=== PATIENT | male | born 1930 | race Caucasian/White ===

== ENCOUNTER 2016-08-30 10:10 | Day surgery (SDC) | payer OTHER ==
--- NOTE | ~2016-08-30 | EGD ---
EGD REPORT [facility] [address] [place] [address] NAME: RILEY BAKER JR : 28 STATUS : REG [facility]#: [id number] AGE: 85 ADM/REG DATE : 08/30/16 MR#: [id number] REPORT SERV DATE: 08/30/16 DICTATED BY: SHEN OLSEN DATE: 08/30/16 REPORT STATUS : Draft TRANSCRIBED BY: [employer] DATE: 08/30/16 [facility] Patient Name: Riley Baker Jr Date of : 1930 Attending MD: SHEN OLSEN MD Procedure Date No Time: 08/30/2016 Procedure: Upper GI endoscopy Indications: Iron deficiency anemia Referring MD: AGATHA LOVE Medicines: as per anesthesia Complications: No immediate complications. Procedure: Pre-Anesthesia Assessment: - ASA Grade Assessment: III - A patient with severe systemic disease. After obtaining informed consent, the endoscope was passed under direct vision. Throughout the procedure, the patient's blood pressure, pulse, and oxygen saturations were monitored continuously. The GIF H190 [id number] was introduced through the mouth, and advanced to the third part of duodenum. The upper GI endoscopy was accomplished without difficulty. The patient tolerated the procedure. Findings: The examined esophagus was normal. The entire examined stomach was normal. The cardia and gastric fundus were normal on retroflexion. The examined duodenum was normal. Biopsies were taken with a cold forceps for histology. Impression: - Normal esophagus. - Normal stomach. - Normal examined duodenum. Biopsied. Recommendation: - Await pathology results. Procedure Code(s): --- Professional --- 38834, Esophagogastroduodenoscopy, flexible, transoral; with biopsy, single or multiple Diagnosis Code(s): --- Professional --- D50.9, Iron deficiency anemia, unspecified CPT copyright 2013 [employer] [place] [employer]. All rights reserved. EGD REPORT [facility] [address] [place] [address] NAME: RILEY BAKER JR : 28 STATUS : [place] [facility] PAT#: [id number] AGE: 85 ADM/REG DATE : 08/30/16 MR#: [id number] REPORT SERV DATE: 08/30/16 DICTATED BY: SHEN OLSEN. DATE: 08/30/16 REPORT STATUS : Draft TRANSCRIBED BY: [employer] DATE: 08/30/16 The codes documented in this report are preliminary and upon lining folder review may be revised to meet current compliance requirements. SHEN OLSEN MD 08/30/2016 12:46 PM This report has been signed electronically. Number of Addenda: 0 Note Initiated On: 08/30/2016 12:30 PM Scope Withdrawal Time 0 hours 0 minutes 0 seconds [address] [place] [address]
--- NOTE | ~2016-08-30 | EGD ---
EGD REPORT [facility] [address] [place] [address] NAME: RILEY BAKER JR : 28 STATUS : REG [facility]#: [id number] AGE: 85 ADM/REG DATE : 08/30/16 MR#: [id number] REPORT SERV DATE: 08/30/16 DICTATED BY: SHEN OLSEN DATE: 08/30/16 REPORT STATUS : Draft TRANSCRIBED BY: [employer] DATE: 08/30/16 [facility] Patient Name: Riley Baker Jr Date of : 1930 Attending MD: SHEN OLSEN MD Procedure Date No Time: 08/30/2016 Procedure: Colonoscopy Indications: Iron deficiency anemia Referring MD: AGATHA LOVE Medicines: as per anesthesia Complications: No immediate complications. Procedure: Pre-Anesthesia Assessment: - ASA Grade Assessment: III - A patient with severe systemic disease. After I obtained informed consent, the scope was passed under direct vision. Throughout the procedure, the patient's blood pressure, pulse, and oxygen saturations were monitored continuously. The PCF H190L [id number] was introduced through the anus and advanced to the sigmoid colon. The colonoscopy was performed with moderate difficulty due to inadequate bowel prep. The patient tolerated the procedure. The quality of the bowel preparation was poor. Findings: The perianal and digital rectal examinations were normal. A few small and large-mouthed diverticula were found in the sigmoid colon. Internal hemorrhoids were found during endoscopy and were mild. poor prep exam stopped Impression: - Preparation of the colon was poor. - Diverticulosis in the sigmoid colon. - Internal hemorrhoids. Recommendation: - Repeat colonoscopy because the bowel preparation was suboptimal. Procedure Code(s): --- Professional --- 41622, 52, Colonoscopy, flexible, proximal to splenic flexure; diagnostic, with or without collection of specimen(s) by brushing or washing, with or without colon decompression (separate procedure) Diagnosis Code(s): --- Professional --- EGD REPORT [place] [address] [place]. [address] NAME: RILEY BAKER JR : [birth year] STATUS : REG [facility] PAT#: [id number] AGE: 85 ADM/REG DATE : 08/30/16 MR#: [id number] REPORT SERV DATE: 08/30/16 DICTATED BY: SHEN OLSEN DATE: 08/30/16 REPORT STATUS : Draft TRANSCRIBED BY: [employer] DATE: 08/30/16 K64.8, Other hemorrhoids K57.30, Diverticulosis of large intestine without perforation or abscess without bleeding D50.9, Iron deficiency anemia, unspecified CPT copyright 2013 [employer]. All rights reserved. The codes documented in this report are preliminary and upon boat mechanic review may be revised to meet current compliance requirements. SHEN OLSEN MD 08/30/2016 1:01 PM This report has been signed electronically. Number of Addenda: 0 Note Initiated On: 08/30/2016 12:29 PM Scope Withdrawal Time 0 hours 0 minutes 0 seconds [address] [place] [address]
[~2016-08-30 10:10] MED LIST: ACCUNEB INH; ASAB PO; ATEN25 PO; COMBIVENT INH; FERROUS SULF325 M1 PO; FLOMAX4 PO; L20 PO; LEVOTHYROXIN125 MCG PO; LOP50 PO; LORTAB 5 PO; MCZ125 PO; NORV10 PO; PRIN20 PO; PROAIR HFA INH; SINGULAIR1 PO; SYMBICORT 160/41 INH INH; VIB100 PO; ZYLET1 ML OP
[2016-09-21] MEDS ORDERED: ZANTAC 150 PO (09:49)
[2016-09-21] MEDS ORDERED: PRAVAC PO (09:50)
[2016-09-21] MEDS ORDERED: MULTIVIT/MIN PO (09:57)
[2016-09-21] MEDS ORDERED: DUONEB INH (09:59)
[2016-09-21] MEDS ORDERED: SPIRIVA INH (10:02)
[2016-09-21] MEDS ORDERED: VENTOLIN HFA INH (10:02)
== END 2016-08-30 23:59 | disposition home or self-care (01) ==
LOC: DMU 10:10
PROVIDERS: Internal Medicine Gastroenterology
PROC: 0DJD8ZZ Inspection of Lower Intestinal Tract, Via Natural or Artificial Opening Endoscopic (ICD-10-PCS; principal; 2016-08-30 12:00)
PROC: 0DB98ZX Excision of Duodenum, Via Natural or Artificial Opening Endoscopic, Diagnostic (ICD-10-PCS; 2016-08-30 12:00)
DX: D50.9 Iron deficiency anemia, unspecified (principal); K57.30 Diverticulosis of large intestine without perforation or abscess without bleeding; K64.8 Other hemorrhoids; K57.92 Diverticulitis of intestine, part unspecified, without perforation or abscess without bleeding; I10 Essential (primary) hypertension; I25.10 Atherosclerotic heart disease of native coronary artery without angina pectoris; I25.2 Old myocardial infarction; J44.9 Chronic obstructive pulmonary disease, unspecified; E78.00 Pure hypercholesterolemia, unspecified; E03.9 Hypothyroidism, unspecified; H91.90 Unspecified hearing loss, unspecified ear; N40.0 Benign prostatic hyperplasia without lower urinary tract symptoms; Z95.0 Presence of cardiac pacemaker; Z90.89 Acquired absence of other organs; Z79.82 Long term (current) use of aspirin; Z79.899 Other long term (current) drug therapy; Z98.890 Other specified postprocedural states
CPT/HCPCS: 88305

== ENCOUNTER 2016-09-22 10:21 | Day surgery (SDC) | payer OTHER ==
--- NOTE | ~2016-09-22 | EGD ---
EGD REPORT [facility] [address] [address] NAME: RILEY BAKER JR : [birth year] STATUS : REG [facility]#: [id number] AGE: 85 ADM/REG DATE : 09/22/16 MR#: [id number] REPORT SERV DATE: 09/22/16 DICTATED BY: SHEN OLSEN DATE: 09/22/16 REPORT STATUS : Draft TRANSCRIBED BY: [employer] DATE: 09/22/16 [facility] Patient Name: Riely Baker Jr Date of : 1930 Attending MD: SHEN OLSEN MD Procedure Date No Time: 09/22/2016 Procedure: Colonoscopy Indications: Iron deficiency anemia Referring MD: AGATHA LOVE Medicines: as per anesthesia Complications: No immediate complications. Procedure: Pre-Anesthesia Assessment: - ASA Grade Assessment: IV - A patient with severe systemic disease that is a constant threat to life. After I obtained informed consent, the scope was passed under direct vision. Throughout the procedure, the patient's blood pressure, pulse, and oxygen saturations were monitored continuously. The PCF H190L [id number] was introduced through the anus and advanced to the cecum, identified by appendiceal orifice and ileocecal valve. The colonoscopy was performed without difficulty. The patient tolerated the procedure. The quality of the bowel preparation was adequate to identify polyps. Findings: The perianal and digital rectal examinations were normal. A sessile polyp was found in the ascending colon. The polyp was 6 mm in size. The polyp was removed with a jumbo cold forceps. Resection and retrieval were complete. Multiple small and large-mouthed diverticula were found in the sigmoid colon, in the descending colon and in the transverse colon. Internal hemorrhoids were found during endoscopy and were mild. Impression: - One 6 mm polyp in the ascending colon. Resected and retrieved. - Diverticulosis in the sigmoid colon, in the descending colon and in the transverse colon. - Internal hemorrhoids. Recommendation: - Await pathology results. Procedure Code(s): --- Professional --- 21102, Colonoscopy, flexible, proximal to splenic flexure; with biopsy, single or multiple EGD REPORT [facility] [address] [address] NAME: RILEY BAKER : 28 STATUS : REG [facility] [place] [place] PAT#: [id number] AGE: 85 ADM/REG DATE : 09/22/16 MR#: [id number] REPORT SERV DATE: 09/22/16 DICTATED BY: SHEN OLSEN DATE: 09/22/16 REPORT STATUS : Draft TRANSCRIBED BY: [employer] DATE: 09/22/16 Diagnosis Code(s): --- Professional --- D12.2, Benign neoplasm of ascending colon K64.8, Other hemorrhoids K57.30, Diverticulosis of large intestine without perforation or abscess without bleeding D50.9, Iron deficiency anemia, unspecified CPT copyright 2013 [employer]. All rights reserved. The codes documented in this report are preliminary and upon remote inpatient coder review may be revised to meet current compliance requirements. SHEN OLSEN MD 09/22/2016 1:20 PM This report has been signed electronically. Number of Addenda: 0 Note Initiated On: 09/22/2016 12:51 PM Scope Withdrawal Time 0 hours 7 minutes 55 seconds [address] [address]
[~2016-09-22 10:21] MED LIST changes: +DUONEB INH; +MULTIVIT/MIN PO; +PRAVAC PO; +SPIRIVA INH; +VENTOLIN HFA INH; +ZANTAC 150 PO
== END 2016-09-22 23:59 | disposition home or self-care (01) ==
LOC: DMU 10:21
PROVIDERS: Internal Medicine Gastroenterology
PROC: 0DBK8ZZ Excision of Ascending Colon, Via Natural or Artificial Opening Endoscopic (ICD-10-PCS; principal; 2016-09-22 12:00)
DX: D12.2 Benign neoplasm of ascending colon (principal); K64.8 Other hemorrhoids; K57.30 Diverticulosis of large intestine without perforation or abscess without bleeding; D50.9 Iron deficiency anemia, unspecified; I25.10 Atherosclerotic heart disease of native coronary artery without angina pectoris; I10 Essential (primary) hypertension; J44.9 Chronic obstructive pulmonary disease, unspecified; E03.9 Hypothyroidism, unspecified; E89.0 Postprocedural hypothyroidism; N40.0 Benign prostatic hyperplasia without lower urinary tract symptoms; K57.92 Diverticulitis of intestine, part unspecified, without perforation or abscess without bleeding; M19.90 Unspecified osteoarthritis, unspecified site; G43.909 Migraine, unspecified, not intractable, without status migrainosus; H91.90 Unspecified hearing loss, unspecified ear; E78.00 Pure hypercholesterolemia, unspecified; I25.2 Old myocardial infarction; Z95.0 Presence of cardiac pacemaker; Z98.890 Other specified postprocedural states; Z79.899 Other long term (current) drug therapy; Z79.82 Long term (current) use of aspirin
CPT/HCPCS: 88305